=== PATIENT | male | born 1940 | race Caucasian/White ===

== ENCOUNTER 2021-02-28 15:44 | Emergency (ER) | payer MEDICARE, OTHER ==
[2021-02-28] MEDS ORDERED: Bacitracin Oint 1 GM U/D Packet TOP ONE (16:05)
[2021-02-28] MEDS ORDERED: Diphtheria,Pertussis(Acell),Tetanus Vaccine 0.5 ML Syringe IM ONE (16:05)
--- NOTE | 2021-02-28 16:09 | EDM.PDOC ---
ED HPI GENERAL MEDICAL PROBLEM - General Chief Complaint: Head Injury Stated Complaint: FELL Time Seen by Provider: 02/28/21 15:52 Source of Information: Reports: Patient History Limitations: Reports: No Limitations - History of Present Illness INITIAL COMMENTS - FREE TEXT/NARRATIVE: HISTORY AND PHYSICAL: History of present illness: Patient is a 80-year-old male who presents to the emergency room with complaints of abrasions to bilateral hands and left knee after a fall. Patient was out at the [facility] and had tripped on some graded landing, landing on his knees and palms of his hands. Family members who were with him witnessed the event. Patient denies hitting his head but family members are concerned he may have hit his head as he states he feels dizzy and slightly tired. Patient does have abrasions to the palms of his hands and a skin avulsion on the right palmar surface. Family is concerned he needs a head CT, stating that he seemed very drowsy on his way into the emergency room. He has been acting appropriately, answering questions appropriately and coherent. Patient states he feels "sweaty" from being out in 90 degree heat today. Patient otherwise states he feels well and offers no complaints or concerns. Unsure of his last tetanus update. Patient denies any fever, chills, headache, change in vision, syncope or near syncope. Denies any chest pain, back pain, shortness of breath or cough. Denies any abdominal pain, nausea, vomiting, diarrhea, constipation or dysuria. Has not noted any blood in urine or stool. Patient has been eating and drinking appropriately. Review of systems: As per history of present illness and below otherwise all systems reviewed and negative. Past medical history: As per history of present illness and as reviewed below otherwise noncontributory. Surgical history: As per history of present illness and as reviewed below otherwise noncontributory. Social history: See social history for further information Family history: As per history of present illness and as reviewed below otherwise noncontributory. Physical exam: General: Well developed and well nourished. Alert and orientated x 3. Nontoxic in appearance and in no acute distress. Vital signs are stable and have been reviewed by me. Nursing notes were reviewed. HEENT: Atraumatic, normocephalic, pupils equal and reactive bilaterally, negative for conjunctival pallor or scleral icterus, mucous membranes moist, TMs normal bilaterally, throat clear, neck supple, nontender, trachea midline. No drooling or trismus noted. No meningeal signs. No hot potato voice noted. Lungs: Clear to auscultation bilaterally. No wheezes, rales, or rhonchi. Chest nontender. Normal work of breathing, no accessory muscles used. Heart: S1S2, regular rate and rhythm without overt murmur, gallops, or rubs. No JVD. No peripheral edema Abdomen: Soft, nondistended, nontender. Normoactive bowel sounds. Negative for masses or costovertebral tenderness. Pelvis: Stable nontender. C-spine/Back: No pinpoint vertebral tenderness upon palpation. No crepitus, step-offs or obvious deformities. Patient reports he has chronic neck pain, no new or unusual pain noted after injury. Patient is ambulatory into the emergency room without difficulty or deficit. Able to rock back on heels and walk on toes. Denies any urinary or fecal incontinence. Denies any numbness, tingling or saddle paresthesia. No concerns of serious infection, fracture or cord compression, or cauda equina syndrome. Deep tendon reflexes brisk bilaterally. Skin: Superficial abrasions to the palms of bilateral hands. A 3 cm x 0.5 cm skin avulsion, superficial to the right palmar surface. Early bruising and abrasion noted to left kneecap. Remaining skin is intact, warm, dry. No lesions or rashes noted. Hematologic: No petechiae or purpra. Mucosa appropriate color and normal nail bed color and refill. Extremities: Atraumatic, moves all extremities per self without difficulty or deficits, negative for cords or calf pain. Neurovascular unremarkable. Neuro: Awake, alert, oriented. Cranial nerves II through XII unremarkable. Cerebellum unremarkable. Motor and sensory unremarkable throughout. Exam nonfocal. Psychiatric: Mood and affect are appropriate. Normal thought process. Answering questions appropriately. Notes: *This patient was seen and evaluated during the 2019 SARS-CoV-2 novel coronavirus pandemic period. Community viral transmission is ongoing at time of this encounter and the emergency department is operating under pandemic response procedures. Patient is a 80-year-old male who presents to the emergency room after a fall, landing on his hands and knees. Patient's concerns are the abrasions to his palmar surface. Family members are concerned he needs a head CT as he did state he was tired after the fall and believe he may have hit his head. Patient is not on any form of blood thinner. He is alert, oriented and answering questions appropriately. Patient is adamant that he does not need any lab work or EKG, declines these diagnostics. He is agreeable to a head CT and wound care. There was a trauma alert that had come and while the patient was waiting for his head CT. Patient is anxious to be discharged. He states he did not realize it would take so long to get a head CT completed and read by radiologist. He would like to sign out AGAINST MEDICAL ADVICE. He is here with 2 family members who are agreeable. We discussed signs and symptoms that would prompt him to return to the emergency room. He is vitally stable and appears well. Wound care was provided. Diagnostics: Head CT (Declined labs, EKG and CT neck) Therapeutics: Tdap, bacitracin, wound care Prescription: None Impression: Fall Abrasions Plan: Left against medical advice Definitive disposition and diagnosis as appropriate pending reevaluation and review of above. right hand Pain Score (Numeric/FACES): 3 - Related Data Allergies Allergy/AdvReac Type Severity Reaction Status Date / Time morphine Allergy Other Verified 02/28/21 16:01 Past Medical History Cardiovascular History: Reports: High Cholesterol, Hypertension - Infectious Disease History Infectious Disease History: Reports: Chicken Pox, Measles, Mumps, Rubella - Past Surgical History Other Cardiovascular Surgeries/Procedures: cleaned out carotid artery Other Musculoskeletal Surgeries/Procedures:: right shoulder injury and surgery 5x Social & Family History - Recreational Drug Use Recreational Drug Use: No ED ROS GENERAL - Review of Systems Review Of Systems: Comprehensive ROS is negative, except as noted in HPI. ED EXAM, HEAD INJURY - Physical Exam Exam: See Below (See dictation) Course - Vital Signs Last Recorded V/S: Last Vital Signs Temp 96 F L 02/28/21 16:01 Pulse 62 02/28/21 16:01 Resp BP 127/52 L 02/28/21 16:01 Pulse Ox 94 L 02/28/21 16:01 - Orders/Labs/Meds Orders: Active Orders 24 hr Category Date Time Status Communication Order [RC] STAT Care 02/28/21 16:05 Active EKG Documentation Completion [RC] STAT Care 02/28/21 16:05 Active Vaccines to be Administered [RC] PER UNIT ROUTINE Care 02/28/21 16:06 Active Head wo Cont [CT] Stat Exams 02/28/21 16:05 Ordered Meds: Medications Discontinued Medications Generic Name Dose Route Start Last Admin Trade Name Drew PRN Reason Stop Dose Admin Bacitracin 1 dose 02/28/21 16:05 02/28/21 16:12 Bacitracin Oint 1 Gm U/D Packet TOP 02/28/21 16:06 1 dose ONETIME ONE Administration Diphtheria/Tetanus/Acell Pertussis 0.5 ml 02/28/21 16:05 02/28/21 16:11 Diphtheria,Pertussis(Acell),Tetanus Vaccine 0.5 Ml Syringe IM 02/28/21 16:06 0.5 ml .ONCE ONE Administration Departure - Departure Time of Disposition: 17:18 Disposition: Against Medical Advice 07 Clinical Impression: Multiple abrasions Fall Qualifiers: Encounter type: initial encounter Qualified Code(s): W19.XXXA - Unspecified fall, initial encounter - Discharge Information Referrals: PCP,None [Primary Care Provider] - Forms: ED Department Discharge Sepsis Event Note (ED) - Evaluation Sepsis Screening Result: No Definite Risk - Focused Exam Vital Signs: Vital Signs Temp Pulse BP Pulse Ox 02/28/21 16:01 96 F L 62 127/52 L 94 L - My Orders Last 24 Hours: My Active Orders 02/28/21 16:05 Communication Order [RC] STAT EKG Documentation Completion [RC] STAT Head wo Cont [CT] Stat 02/28/21 16:06 Vaccines to be Administered [RC] PER UNIT ROUTINE - Assessment/Plan Last 24 Hours: My Active Orders 02/28/21 16:05 Communication Order [RC] STAT EKG Documentation Completion [RC] STAT Head wo Cont [CT] Stat 02/28/21 16:06 Vaccines to be Administered [RC] PER UNIT ROUTINE
== END 2021-02-28 17:19 | disposition left against medical advice (07) ==
LOC: MW.ED 15:44
DX: S60.512A Abrasion of left hand, initial encounter (principal); S60.511A Abrasion of right hand, initial encounter; S80.212A Abrasion, left knee, initial encounter; Z23 Encounter for immunization; W01.0XXA Fall on same level from slipping, tripping and stumbling without subsequent striking against object, initial encounter
CPT/HCPCS: 90471; 90715; 99283; 99283-25

== ENCOUNTER 2022-03-31 18:22 | Emergency (ER) | payer OTHER, MEDICARE ==
[2022-03-31 19:34] LABS: CARBON DIOXIDE,CO2 26.6 mmol/L (21.0-32.0); POTASSIUM,K 3.9 mmol/L (3.5-5.1)
[2022-03-31] MEDS ORDERED: Iopamidol 755 MG/ML 500 ML Multipack Bottle IVPUSH ONE (21:10)
[2022-03-31] MEDS ORDERED: Clopidogrel 75 MG Tab PO ONE (22:45)
== END 2022-03-31 23:25 | disposition home or self-care (01) ==
LOC: MW.ED 18:22
DX: I65.22 Occlusion and stenosis of left carotid artery (principal); I10 Essential (primary) hypertension; Z88.5 Allergy status to narcotic agent; Z20.822 Contact with and (suspected) exposure to COVID-19; Z79.02 Long term (current) use of antithrombotics/antiplatelets
CPT/HCPCS: 36415; 70498; 71045; 74174; 80053; 85025; 87635; 93005; 99283; A9270; Q9967; 99291; U0002